=== PATIENT | male | born 1935 | race Caucasian/White ===

== ENCOUNTER 2021-10-22 16:42 | Observation (INO) ==
[2021-10-22] MEDS ORDERED: 0.9 % SODIUM CHLORIDE 1,000 ML IV ONE ×2 (18:20→19:25)
--- NOTE | 2021-10-22 18:25 | Emergency Department Note ---
HPI General Chief complaint: Blood Pressure Problem Stated complaint: "low blood pressure" Time Seen by Provider: 10/22/21 16:53 Source: patient Mode of arrival: ambulatory Limitations: no limitations History of Present Illness HPI Narrative: Narrative: Patient presents to the ED with complaints of remittent dizziness x1 week. He states that at times he feel like his got a pass out but he does not. He states sometimes when he is walking he has to brace himself on the wall. He states that his blood pressure has been low down around 110 systolically. [facility] come [facility] for [facility]. Patient states that he takes metoprolol, losartan for blood pressure control and he also takes Lasix for heart failure. Patient states he has been taking the medication as prescribed. He denies any falls, head trauma, vision change, slurred speech, extremity weakness, extremity numbness, facial droopiness, cardiac chest pain, heart palpitations, shortness of breath, cough, sputum production, melena, medic easier, hematemesis. Patient denies any other alleviating or aggravating factors. Related Data Home Medications Medication Instructions Recorded Confirmed aspirin 81 mg tablet,delayed 81 mg PO DAILY 01/14/15 10/22/21 release mometasone 50 mcg/actuation nasal 2 spray KENYATTA DAILY 11/04/15 10/22/21 spray nitroglycerin 0.4 mg sublingual 0.4 mg SL PRN PRN Chest Pain 11/04/15 10/09/19 tablet CPAP miscellaneous 11/26/15 08/23/19 acetaminophen 325 mg tablet 650 mg PO Q6H PRN Pain 11/26/15 10/22/21 ipratropium 20 mcg-albuterol 100 1 inh inhalation QID 11/27/15 10/22/21 mcg/actuation mist for inhalation (Combivent Respimat) atorvastatin 40 mg tablet 80 mg PO DAILY 01/07/16 10/22/21 finasteride 5 mg tablet 5 mg PO QHS 01/07/16 10/22/21 ioxurp-dczsbuxs-brsszvd 2 cap PO .QAC 03/02/17 10/22/21 24,000-76,000-120,000 unit capsule,delayed rel (Creon) multivitamin 1 tab PO QDAY 03/02/17 10/22/21 tadalafil 20 mg tablet (Cialis) 20 mg PO QDAY PRN erectile 02/28/19 10/09/19 disfunction albuterol 90 mcg/actuation aerosol 90 mcg inhalation QID 10/22/21 10/22/21 inhaler doxepin 50 mg capsule 100 mg PO QHS 10/22/21 10/22/21 ezetimibe 10 mg tablet 10 mg PO QDAY 10/22/21 10/22/21 furosemide 20 mg tablet 20 mg PO DAILY 10/22/21 10/22/21 ibuprofen 600 mg tablet 600 mg PO DAILY PRN Pain 10/22/21 10/22/21 losartan 25 mg tablet 50 mg PO QDAY 10/22/21 10/22/21 metoprolol succinate 50 mg 50 mg PO QDAY 10/22/21 10/22/21 tablet,extended release 24 hr tamsulosin 0.4 mg capsule (Flomax) 0.8 mg PO QHS 10/22/21 10/22/21 Previous Rx's Medication Instructions Recorded pantoprazole 40 mg tablet,delayed 40 mg PO QDAY #90 tabs 08/23/19 release Allergies Allergy/AdvReac Type Severity Reaction Status Date / Time doxycycline Allergy Mild Rash Verified 10/09/19 15:47 morphine Allergy Mild Rash Verified 10/09/19 15:47 Review of Systems ROS ROS Narrative: Narrative: All systems ED: reviewed and negative except as stated. [facility] Narrative Patient History Narrative: Narrative: Medical/Surgical/Family History All Active Problems (Updated 10/22/21 @ 21:35 by Vin Lee DO) Chest pain (Acute) Symptomatic bradycardia (Acute) Night sweats (Acute) Annual physical exam (Acute) Medicare annual wellness visit, initial (Acute) Chronic pancreatitis (Chronic) Prediabetes (Chronic) Left ankle pain (Acute) Thrombocytopenia (Acute) Leukopenia (Acute) Pancreatic necrosis (Chronic) GERD (gastroesophageal reflux disease) (Chronic) BPH (benign prostatic hyperplasia) (Chronic) Nausea and vomiting (Chronic) Peripancreatic fluid collection (Chronic) Arthritis of back (Chronic) Acute pancreatitis with uninfected necrosis (Chronic) Lower extremity edema (Chronic) CAD (coronary artery disease) (Chronic) Diarrhea (Chronic 11/08/15) Abdominal pain (Chronic) 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) Colon polyps (Chronic) Seizures (Chronic 10/14/15) Joint pain (Chronic) Hyperlipidemia (Chronic) Hypertension, essential (Chronic) Heart trouble (Chronic) Daytime sleepiness (Chronic) Muscle pain (Chronic) Asthma (Chronic) Bronchitis (Chronic) Sinusitis (Chronic) Pneumonia (Chronic) Laboratory test (Chronic) Medical History (Updated 10/22/21 @ 21:35 by Vin Lee DO) Abdominal pain Acute pancreatitis with uninfected necrosis Annual physical exam Arthritis of back Asthma BPH (benign prostatic hyperplasia) Bronchitis CAD (coronary artery disease) Colon polyps Daytime sleepiness Diarrhea (11/08/15) Drug-induced pancreatitis (10/14/15) GERD (gastroesophageal reflux disease) Heart trouble Hyperlipidemia Hypertension, essential Joint pain Laboratory test Lower extremity edema Medicare annual wellness visit, initial Muscle pain Nausea and vomiting Night sweats Pancreatic necrosis Peripancreatic fluid collection Pneumonia Prediabetes Seizures (10/14/15) Sinusitis Surgical History H/O colonoscopy H/O eye surgery (1998) tear duct H/O heart artery stent (~01/2014) 2012 5 stents done over 2 surgeries H/O heart surgery (2014) H/O sinus surgery (1996) History of back surgery (2011) Also 1996 History of endoscopy (02/16/16) GI History of esophagogastroduodenoscopy (EGD) (02/16/16) 12/09/15 Family History Mother Colon cancer Hypertension, essential Heart attack Sister Hypertension, essential Social History Alcohol Intake Frequency: does not drink Substance Use: does not use Exam Narrative Narrative: Narrative: General Limitations: no limitations General appearance: Present alert Head Head: Present atraumatic and normocephalic Eye Eye: Present PERRL and EOMI ENT ENT: Present normal exam and normal oropharynx Neck Neck: Present normal inspection; Absent tenderness or meningismus Chest Chest: Present normal inspection; Absent tenderness Respiratory Respiratory: Present normal lung sounds bilaterally; Absent respiratory distress Cardiovascular Cardiovascular: Present normal rhythm and bradycardia Adbominal Abdominal: Present soft; Absent tenderness Extremities Extremities: Present normal capillary refill Back Back: Absent CVA tenderness (R) or CVA tenderness (L) Neurological Neurological: Present oriented X3 and normal gait Psychiatric Psychiatric: Present normal affect and normal mood Skin Skin: Present warm (WNL) and pallor Course Course Course Narrative: Patient was evaluated for dizziness. EKG was obtained and shows sinus bradycardia. Patient with monitored on telemetry he did bradycardia down to about 38 at times but average around 45 bpm. Labs were unremarkable. Patient attempted to ambulate the halls but became tired and weak. CT of the head was unremarkable. Case was discussed with cardiology who recommends the patient be admitted to hospitalist service and his beta-fay be held. They request a hospitalist consult cardiology group and they will evaluate him in the morning after his beta-fay has been held. Case discussed with hospitalist who has agreed to admit the patient Reevaluation(s) Reevaluation #1: Patient remains hemodynamic stable. No new complaints at this time Time: 20:10 Consultations Consultation #1: Case discussed with cardiology advanced nurse practitioner Mallory, who recommend that patient be admitted to the hospitalist service and that his beta-fay be held. She reports that the cardiology group will evaluate the patient in the morning after being consulted. Time: 21:05 Consultation #2: Case discussed with hospitalist who has agreed to admit the patient Time: 22:01 Vital Signs Vital signs: Vital Signs Temperature 98.2 F 10/22/21 16:43 Pulse Rate 51 L 10/22/21 16:43 Respiratory Rate 18 10/22/21 16:43 Blood Pressure 150/75 10/22/21 16:43 Pulse Oximetry (%) 96 10/22/21 16:43 Oxygen Delivery Method 10/22/21 16:43 Temperature 98.2 F 10/22/21 16:43 Pulse Rate 48 L 10/22/21 21:42 Respiratory Rate 16 10/22/21 21:42 Blood Pressure 143/61 10/22/21 21:42 Pulse Oximetry (%) 98 10/22/21 21:42 Oxygen Delivery Method 10/22/21 16:43 [facility] MDM Narrative Medical decision making narrative: Narrative: Differential Diagnosis Differential Diagnosis: Bradycardia, vertigo, dehydration, anemia Medical Records Medical records reviewed: Yes I reviewed the patient's medical records. Lab Data Lab results reviewed: Yes I reviewed the patient's lab results. Result diagrams: 10/22/21 18:53 Labs: Lab Results 10/22/21 10/22/21 10/22/21 Range/Units 18:53 18:53 18:59 WBC 4.7 (4.5-11.0) K/mcL RBC 4.45 L (4.63-6.08) M/mcL Hgb 13.3 L (13.7-17.5) g/dL Hct 39.2 L (40.1-51.0) % POC Hct (41-55) MCV 88.1 (80.0-100.0) fL MCH 29.9 (26.0-34.0) pg MCHC 33.9 (31.0-36.0) g/dL RDW 13.0 (11.5-14.5) % Plt Count 154 (140-440) K/mcL MPV 10.9 H (7.4-10.4) fL Immature Gran % (Auto) 0.4 (0.0-0.5) % Neut % (Auto) 49.2 (38.0-78.0) % Lymph % (Auto) 33.0 (15.5-49.0) % [place] % (Auto) 8.2 (1.0-12.0) % Eos % (Auto) 8.6 H (0.0-7.0) % Baso % (Auto) 0.6 (0.0-2.0) % Lymph # (Auto) 1.54 (1.50-4.80) K/mcL [place] # (Auto) 0.38 (0.10-0.90) K/mcL Eos # (Auto) 0.40 (0.00-0.70) K/mcL Baso # (Auto) 0.03 (0.00-0.30) K/mcL Immature Gran # 0.02 (0.00-0.05) K/mcl Absolute Neutrophils 2.29 (1.80-8.00) K/mcL POC Sodium (133-145) POC Potassium (3.3-5.1) POC Chloride (96-108) POC Total CO2 (22-30) POC BUN (6-20) POC Creatinine (0.6-1.2) POC Glucose (70-105) POC WB Ioniz Calcium (1.16-1.32) NT-Pro-B Natriuret Pep 60.6 (<450.0) pg/mL POC Troponin I 0 L (0.02-0.08) 10/22/21 Range/Units 19:00 WBC (4.5-11.0) K/mcL RBC (4.63-6.08) M/mcL Hgb (13.7-17.5) g/dL Hct (40.1-51.0) % POC Hct 38.0 L (41-55) MCV (80.0-100.0) fL MCH (26.0-34.0) pg MCHC (31.0-36.0) g/dL RDW (11.5-14.5) % Plt Count (140-440) K/mcL MPV (7.4-10.4) fL Immature Gran % (Auto) (0.0-0.5) % Neut % (Auto) (38.0-78.0) % Lymph % (Auto) (15.5-49.0) % [place] % (Auto) (1.0-12.0) % Eos % (Auto) (0.0-7.0) % Baso % (Auto) (0.0-2.0) % Lymph # (Auto) (1.50-4.80) K/mcL [place] # (Auto) (0.10-0.90) K/mcL Eos # (Auto) (0.00-0.70) K/mcL Baso # (Auto) (0.00-0.30) K/mcL Immature Gran # (0.00-0.05) K/mcl Absolute Neutrophils (1.80-8.00) K/mcL POC Sodium 141 (133-145) POC Potassium 4.3 (3.3-5.1) POC Chloride 103 (96-108) POC Total CO2 30.0 (22-30) POC BUN 28 H (6-20) POC Creatinine 1.5 H (0.6-1.2) POC Glucose 102 (70-105) POC WB Ioniz Calcium 1.21 (1.16-1.32) NT-Pro-B Natriuret Pep (<450.0) pg/mL POC Troponin I (0.02-0.08) EKG Data EKG #1: EKG attestation: Yes I reviewed and interpreted this EKG. EKG shows normal: sinus rhythm Rate: bradycardia (47) Rhythm: NSR Coats/QRS: normal Heart block present: None ST segment elevation in: None ST segment depression in: None QTc: normal QRS morphology: Present normal Interpretation: no acute changes Core Measures AMI Core Measures Followed: Yes Discharge Plan Patient/Caregiver Discharge Instructions Pt seen by TIMBER SIZER OPERATOR/PA only: No Clinical Impression: Symptomatic bradycardia Patient Disposition: Xfer As Outpt/Obs ([facility]) Condition: Good Follow up with: Nasrin Roach ARNP [Primary Care Provider] - Prescriptions: No Action ipratropium-albuterol [Combivent Respimat] 20-100 mcg/actuation mist 1 inh INHALATION QID vwtpgp-csiqwpdf-ghnchke [Creon] 24,000-76,000 -120,000 unit capsule,delayed release(DR/EC) [address] Label Comments: and 2 cap with snacks CPAP MISCELLANE acetaminophen 325 mg tablet 650 mg PO Q6H PRN (Reason: Pain) finasteride 5 mg tablet 5 mg PO QHS multivitamin tablet 1 tab PO QDAY pantoprazole 40 mg tablet,delayed release (DR/EC) 40 mg PO QDAY Qty: 90 1RF tadalafil [Cialis] 20 mg tablet 20 mg PO QDAY PRN (Reason: erectile disfunction) aspirin 81 MG tablet,delayed release (DR/EC) 81 mg PO DAILY atorvastatin 40 MG tablet 80 mg PO DAILY nitroglycerin 0.4 MG tablet, sublingual 0.4 mg SL PRN PRN (Reason: Chest Pain) Label Comments: hasn't had to use for years mometasone 1 SPRAY bottle 2 spray KENYATTA DAILY doxepin 50 mg capsule 100 mg PO QHS losartan 25 mg tablet 50 mg PO QDAY tamsulosin [Flomax] 0.4 mg capsule 0.8 mg PO QHS furosemide 20 mg tablet 20 mg PO DAILY Label Comments: [NO ORIGINAL SIG] metoprolol succinate 50 mg Tablet Extended Release 24 Hr 50 mg PO QDAY ezetimibe 10 mg Tablet 10 mg PO QDAY albuterol 90 mcg/actuation Aerosol 90 mcg INHALATION QID Rx Instructions: 2 puffs QID ibuprofen 600 mg Tablet 600 mg PO DAILY PRN (Reason: Pain)
--- NOTE | 2021-10-22 18:40 | Cat Scan Report ---
CLINICAL INFORMATION: Dizziness COMPARISON: None. TECHNIQUE: 2.5 mm helical slices were obtained in the skull base to vertex. Following reconstruction, axial reformatted images were reviewed at bone and parenchymal windows. The exam was performed using radiation dose optimization techniques including, but not limited to, automated exposure control, adjustment of the mA and/or kV according to patient size and use of iterative reconstruction technique. FINDINGS: The ventricles, sulci, fissures, and cisterns are symmetrically enlarged compatible with mild age-related atrophy. No extra-axial fluid collections are identified. Mild patchy chronic ischemic changes, in the deep cerebral white matter, are expected for age. There is no hemorrhage, mass effect, or edema. Bone windows show no osseous abnormality. IMPRESSION: Mild atrophy and chronic ischemic changes in the deep cerebral white matter-expected for age. No acute findings Interpreted and Authenticated by: Baljit Moore 10/22/21
[2021-10-22 19:05] LABS: POC Calcium, Ionized 1.21 (1.16-1.32); POC Creatinine 1.5 (0.6-1.2); POC Potassium 4.3 (3.3-5.1)
[2021-10-22] MEDS ORDERED: ACETAMINOPHEN 325 MG TABLET PO ONE (19:14)
[2021-10-22 20:11] LABS: Basophils # (Auto) 0.03 K/mcL (0.00-0.30); Basophils % (Auto) 0.6 % (0.0-2.0); Eosinophils % (Auto) 8.6 % (0.0-7.0); Hematocrit 39.2 % (40.1-51.0); Hemoglobin 13.3 g/dL (13.7-17.5); Lymphocytes # (Auto) 1.54 K/mcL (1.50-4.80); Mean Cell Volume 88.1 fL (80.0-100.0); Mean Corpuscular HGB Conc 33.9 g/dL (31.0-36.0); Mean Platelet Volume 10.9 fL (7.4-10.4); Monocytes # (Auto) 0.38 K/mcL (0.10-0.90); Monocytes % (Auto) 8.2 % (1.0-12.0); Neutrophils % (Auto) 49.2 % (38.0-78.0); Platelet Count 154 K/mcL (140-440); RBC 4.45 M/mcL (4.63-6.08); WBC 4.7 K/mcL (4.5-11.0)
[2021-10-22] MEDS ORDERED: MECLIZINE 25 MG TABLET PO ONE (20:15)
[2021-10-22 21:00] LABS: proBNP 60.6 pg/mL (<450.0)
--- NOTE | 2021-10-22 22:23 | Internal Med History&Physical ---
HPI History of Present Illness Patient information: Note initiated : 10/22/21 at 10:21 pm Service Date, if different from initiated Date: [] Patient: Evaristo Vega 86 y/o M admitted on for "low blood pressure". Chief Complaint: [] History of present illness: Mr. Vega is a 86 year old male with a history of hypertension, hyperlipidemia, coronary artery disease status post multiple prior stents, chronic pancreatitis, prediabetes who presented to the emergency department for intermittent dizziness and near syncope. In the emergency department, the patient was found to have sinus bradycardia with first-degree AV block. Troponin was normal. Electrolytes were normal. He has been on Toprol and that is felt to be at least part of the issue with bradycardia. The patient says that his symptoms do not occur all the time but intermittently and without warning. The patient is admitted to observation for cardiology evaluation. Review of systems Constitutional: no fever, fatigue, or weight loss Eyes: no vision changes or pain Cardiovascular: no chest pain, no palpitations, positive for intermittent near syncope Respiratory: no cough or dyspnea Gastrointestinal: no abdominal pain, no nausea, vomiting, or diarrhea Genitourinary: no dysuria or difficulty voiding Musculoskeletal: no arthralgia or myalgia Integumentary: no skin lesion or wound Neurological: no focal weakness or numbness Psychiatric: no anxiety or depression Physical exam Head: Atraumatic, normal inspection. Eyes: normal appearance, no scleral icterus. Neck: full ROM Respiratory: no respiratory distress. Cardiovascular: Regular bradycardia, S1-S2 GI/Abdominal: soft, nontender, no guarding. Extremities: full range of motion, nontender. Neurological: CN II-XII intact, intact motor, intact sensation. Psychiatric: normal mood. Skin: warm, normal color PFSH PFS All Active Problems (Updated 10/22/21 @ 21:35 by Vin Lee DO) Chest pain (Acute) Symptomatic bradycardia (Acute) Night sweats (Acute) Annual physical exam (Acute) Medicare annual wellness visit, initial (Acute) Chronic pancreatitis (Chronic) Prediabetes (Chronic) Left ankle pain (Acute) Thrombocytopenia (Acute) Leukopenia (Acute) Pancreatic necrosis (Chronic) GERD (gastroesophageal reflux disease) (Chronic) BPH (benign prostatic hyperplasia) (Chronic) Nausea and vomiting (Chronic) Peripancreatic fluid collection (Chronic) Arthritis of back (Chronic) Acute pancreatitis with uninfected necrosis (Chronic) Lower extremity edema (Chronic) CAD (coronary artery disease) (Chronic) Diarrhea (Chronic 11/08/15) Abdominal pain (Chronic) 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) Colon polyps (Chronic) Seizures (Chronic 10/14/15) Joint pain (Chronic) Hyperlipidemia (Chronic) Hypertension, essential (Chronic) Heart trouble (Chronic) Daytime sleepiness (Chronic) Muscle pain (Chronic) Asthma (Chronic) Bronchitis (Chronic) Sinusitis (Chronic) Pneumonia (Chronic) Laboratory test (Chronic) Medical History (Updated 10/22/21 @ 21:35 by Vin Lee DO) Abdominal pain Acute pancreatitis with uninfected necrosis Annual physical exam Arthritis of back Asthma BPH (benign prostatic hyperplasia) Bronchitis CAD (coronary artery disease) Colon polyps Daytime sleepiness Diarrhea (11/08/15) Drug-induced pancreatitis (10/14/15) GERD (gastroesophageal reflux disease) Heart trouble Hyperlipidemia Hypertension, essential Joint pain Laboratory test Lower extremity edema Medicare annual wellness visit, initial Muscle pain Nausea and vomiting Night sweats Pancreatic necrosis Peripancreatic fluid collection Pneumonia Prediabetes Seizures (10/14/15) Sinusitis Surgical History H/O colonoscopy H/O eye surgery (1998) tear duct H/O heart artery stent (~01/2014) 2011 5 stents done over 2 surgeries H/O heart surgery (2014) H/O sinus surgery (1996) History of back surgery (2011) Also 1996 History of endoscopy (02/16/16) GI History of esophagogastroduodenoscopy (EGD) (02/16/16) 12/09/15 Family History Mother Colon cancer Hypertension, essential Heart attack Sister Hypertension, essential Social History (Updated 06/14/19 @ 07:38 by Ace Elias PA-C) marital status: smoking status: Never smoker alcohol intake frequency: does not drink substance use type: does not use MEDS/ALLERGIES Home Medications and Allergies Home Medications Medication Instructions Recorded Confirmed Type aspirin 81 mg tablet,delayed 81 mg PO DAILY 01/14/15 10/23/21 History release mometasone 50 mcg/actuation nasal 2 spray KENYATTA DAILY 11/04/15 10/23/21 History spray CPAP miscellaneous 11/26/15 08/23/19 History acetaminophen 325 mg tablet 650 mg PO Q6H PRN Pain 11/26/15 10/23/21 History ipratropium 20 mcg-albuterol 100 1 inh inhalation QID 11/27/15 10/23/21 History mcg/actuation mist for inhalation (Combivent Respimat) atorvastatin 40 mg tablet 80 mg PO DAILY 01/07/16 10/23/21 History finasteride 5 mg tablet 5 mg PO QHS 01/07/16 10/23/21 History abhcbe-hqgnifep-hbxwvec 3 cap PO .QAC 03/02/17 10/23/21 History 24,000-76,000-120,000 unit capsule,delayed rel (Creon) multivitamin 1 tab PO QDAY 03/02/17 10/23/21 History tadalafil 20 mg tablet (Cialis) 20 mg PO QDAY PRN erectile 02/28/19 10/09/19 History disfunction albuterol 90 mcg/actuation aerosol 90 mcg inhalation QID 10/22/21 10/23/21 History inhaler doxepin 50 mg capsule 100 mg PO QHS 10/22/21 10/23/21 History ezetimibe 10 mg tablet 10 mg PO QDAY 10/22/21 10/23/21 History furosemide 20 mg tablet 20 mg PO DAILY 10/22/21 10/23/21 History ibuprofen 600 mg tablet 600 mg PO DAILY PRN Pain 10/22/21 10/23/21 History losartan 25 mg tablet 50 mg PO QDAY 10/22/21 10/23/21 History metoprolol succinate 50 mg 50 mg PO QDAY 10/22/21 10/23/21 History tablet,extended release 24 hr tamsulosin 0.4 mg capsule (Flomax) 0.8 mg PO QAM 10/22/21 10/23/21 History melatonin 1 tab PO QHS PRN Sleep 10/23/21 10/23/21 History Allergies Allergy/AdvReac Type Severity Reaction Status Date / Time doxycycline Allergy Mild Rash Verified 10/23/21 01:34 hydrochlorothiazide Allergy Mild Rash Verified 10/23/21 01:34 morphine Allergy Mild Rash Verified 10/23/21 01:34 EXAM Constitutional Vitals: Temp Pulse Resp BP Pulse Ox O2 Del Method 98.2 F 48 L 16 143/61 98 10/22/21 16:43 10/22/21 21:42 10/22/21 21:42 10/22/21 21:42 10/22/21 21:42 10/22/21 16:43 DATA Data Completed and Pending Labs: Labs from last 24 hours 10/22/21 10/22/21 10/22/21 19:00 18:59 18:53 WBC RBC Hgb Hct POC Hct 38.0 L MCV MCH MCHC RDW Plt Count MPV Immature Gran % (Auto) Neut % (Auto) Lymph % (Auto) [place] % (Auto) Eos % (Auto) Baso % (Auto) Lymph # (Auto) [place] # (Auto) Eos # (Auto) Baso # (Auto) Immature Gran # Absolute Neutrophils POC Sodium 141 POC Potassium 4.3 POC Chloride 103 POC Total CO2 30.0 POC BUN 28 H POC Creatinine 1.5 H POC Glucose 102 POC WB Ioniz Calcium 1.21 NT-Pro-B Natriuret Pep 60.6 POC Troponin I 0 L 10/22/21 18:53 WBC 4.7 RBC 4.45 L Hgb 13.3 L Hct 39.2 L POC Hct MCV 88.1 MCH 29.9 MCHC 33.9 RDW 13.0 Plt Count 154 MPV 10.9 H Immature Gran % (Auto) 0.4 Neut % (Auto) 49.2 Lymph % (Auto) 33.0 [place] % (Auto) 8.2 Eos % (Auto) 8.6 H Baso % (Auto) 0.6 Lymph # (Auto) 1.54 [place] # (Auto) 0.38 Eos # (Auto) 0.40 Baso # (Auto) 0.03 Immature Gran # 0.02 Absolute Neutrophils 2.29 POC Sodium POC Potassium POC Chloride POC Total CO2 POC BUN POC Creatinine POC Glucose POC WB Ioniz Calcium NT-Pro-B Natriuret Pep POC Troponin I A/P Narrative A/P Narrative: Assessment: 86 year old male admitted for symptomatic bradycardia occurring in the setting of beta-fay use. EKG showed sinus bradycardia with prolonged DC interval. Plan -Hold beta-fay. -vehicle monitor technician. -Cardiology consult. -Continue other home medications. -Cardiac diet. Time Spent With Patient Time: Total time spent is greater than 50% in coordination of care (as documented) at patient's floor/unit and/or counseling patient:
[2021-10-22] MEDS ORDERED: ONDANSETRON 4 MG/2 ML VIAL IV PRN (23:47)
[2021-10-22] MEDS ORDERED: ACETAMINOPHEN 325 MG TABLET PO PRN (23:47)
[2021-10-23 06:32] LABS: Basophils # (Auto) 0.03 K/mcL (0.00-0.30); Basophils % (Auto) 0.7 % (0.0-2.0); Eosinophils # (Auto) 0.37 K/mcL (0.00-0.70); Eosinophils % (Auto) 8.6 % (0.0-7.0); Hematocrit 36.8 % (40.1-51.0); Hemoglobin 12.2 g/dL (13.7-17.5); Lymphocytes # (Auto) 1.39 K/mcL (1.50-4.80); Lymphocytes % (Auto) 32.3 % (15.5-49.0); Mean Cell Volume 89.3 fL (80.0-100.0); Mean Corpuscular HGB Conc 33.2 g/dL (31.0-36.0); Mean Platelet Volume 10.6 fL (7.4-10.4); Monocytes # (Auto) 0.39 K/mcL (0.10-0.90); Monocytes % (Auto) 9.1 % (1.0-12.0); Neutrophils % (Auto) 49.1 % (38.0-78.0); Platelet Count 137 K/mcL (140-440); RBC 4.12 M/mcL (4.63-6.08); Red Cell Distribution Width 12.7 % (11.5-14.5); WBC 4.3 K/mcL (4.5-11.0)
[2021-10-23] MEDS: 0.9 % SODIUM CHLORIDE 10 ML SYRINGE IV SCH ×2 (06:36→14:34)
[2021-10-23 06:43] LABS: ALT/SGPT 15 U/L (<40); AST/SGOT 25 U/L (<40); Albumin 3.7 gm/dL (3.2-5.2); Albumin/Globulin Ratio 1.5 (1.0-2.3); Alkaline Phosphatase 45 U/L (39-117); Bilirubin,Direct < 0.2 mg/dL (0-0.3); Bilirubin,Total 0.2 mg/dL (0.1-1.0); Blood Urea Nitrogen 19 mg/dL (8-23); Calcium 8.5 mg/dL (8.6-10.4); Carbon Dioxide 25 mmol/L (22-30); Chloride 108 mmol/L (96-108); Globulin 2.4 gm/dL (2.2-3.7); Glomerular Filtration Rate 55; Glucose 119 mg/dL (70-105); Lactate Dehydrogenase 209 U/L (135-225); Triglycerides 112 mg/dL (<150); Uric Acid 7.3 mg/dL (2.5-8.0)
[2021-10-23] MEDS: LIPASE/PROTEASE/AMYLASE 1 CAP CAPSULE PO SCH ×2 (07:40→12:44)
[2021-10-23] MEDS ORDERED: ATORVASTATIN 40 MG TABLET PO SCH (09:00)
[2021-10-23] MEDS ORDERED: LOSARTAN 25 MG TABLET PO SCH (09:00)
[2021-10-23] MEDS ORDERED: ASPIRIN 81 MG TAB.CHEW PO SCH (09:00)
--- NOTE | 2021-10-23 10:09 | EKG ---
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
[2021-10-23] MEDS: IPRATROPIUM/ALBUTEROL SULFATE 1 PUFF INHALER INH SCH ×2 (12:44→13:20)
--- NOTE | 2021-10-23 16:29 | Discharge Summary ---
Discharge Provider Provider IMPORTANT FOLLOW-UP INFORMATION FOR PCP: Patient information: Note initiated : 10/23/21 at 4:26 pm Service Date, if different from initiated Date: [] Patient: Evaristo Vega 86 y/o M admitted on 10/22/21 for "low blood pressure". Chief Complaint: [] Date of admission: 10/22/21 23:19 Discharge date: 10/23/21 Primary care physician: Nasrin Roach Consults: 10/22/21 Consult to Physician [CONS] Stat Comment: Consulting Provider: Reggie Lopez Reason For Exam: Physician to Consult Consult to Physician [CONS] Stat Comment: Consulting Provider: Glenny Moraes Cardiology Reason For Exam: Physician to Consult COURSE Hospital Course Hospital course: Mr. Vega is a 86 year old male with a history of hypertension, hyperlipidemia, coronary artery disease status post multiple prior stents, chronic pancreatitis, prediabetes who presented to the emergency department for intermittent dizziness and near syncope. In the emergency department, the patient was found to have sinus bradycardia with first-degree AV block. Troponin was normal. Electrolytes were normal. He has been on Toprol and that is felt to be at least part of the issue with bradycardia. The patient says that his symptoms do not occur all the time but intermittently and without warning. The patient is admitted to observation for cardiology evaluation. The patient's beta fay was held. Cardiology evaluated the patient, his heart rate increased into the 70s with ambulation. There were no concerning changes on the quality assurance monitor. Cardiology felt the patient could discharge to home and recommended holding the beta fay and changing Flomax to night time dose. The patient was discharged with the recommended changes. He has an appointment to see Cardiology after discharge and a PCP followup was also requested at discharge. Physical exam Head: Atraumatic, normal inspection. Eyes: normal appearance, no scleral icterus. Neck: full ROM Respiratory: no respiratory distress. Cardiovascular: Regular bradycardia, S1-S2 GI/Abdominal: soft, nontender, no guarding. Extremities: full range of motion, nontender. Neurological: CN II-XII intact, intact motor, intact sensation. Psychiatric: normal mood. Skin: warm, normal color Discharge diagnosis: Bradycardia Time Spent with Patient Time attestation: Total time spent providing and/or coordinating discharge services: Time spent: Less than 30 minutes EXAM Constitutional Vitals: Temp Pulse Resp BP Pulse Ox O2 Del Method 98.0 F 52 L 14 151/86 94 10/23/21 11:55 10/23/21 11:55 10/23/21 11:55 10/23/21 11:55 10/23/21 11:55 10/23/21 11:55 Discharge Data Data Completed and Pending Labs on day of discharge: Labs from last 24 hours 10/23/21 10/23/21 10/22/21 05:42 05:42 19:00 WBC 4.3 L RBC 4.12 L Hgb 12.2 L Hct 36.8 L POC Hct 38.0 L MCV 89.3 MCH 29.6 MCHC 33.2 RDW 12.7 Plt Count 137 L MPV 10.6 H Immature Gran % (Auto) 0.2 Neut % (Auto) 49.1 Lymph % (Auto) 32.3 Jack % (Auto) 9.1 Eos % (Auto) 8.6 H Baso % (Auto) 0.7 Lymph # (Auto) 1.39 L Jack # (Auto) 0.39 Eos # (Auto) 0.37 Baso # (Auto) 0.03 Immature Gran # 0.01 Absolute Neutrophils 2.11 POC Sodium 141 Sodium 141 POC Potassium 4.3 Potassium 4.3 POC Chloride 103 Chloride 108 Carbon Dioxide 25 POC Total CO2 30.0 Anion Gap 8.0 POC BUN 28 H BUN 19 Creatinine 1.2 POC Creatinine 1.5 H GFR Calculation 55 Glucose 119 H POC Glucose 102 Uric Acid 7.3 Calcium 8.5 L POC WB Ioniz Calcium 1.21 Phosphorus 3.0 Magnesium 2.3 Total Bilirubin 0.2 Direct Bilirubin < 0.2 GGT 39 AST 25 ALT 15 Alkaline Phosphatase 45 Lactate Dehydrogenase 209 NT-Pro-B Natriuret Pep Total Protein 6.1 Albumin 3.7 Globulin 2.4 Albumin/Globulin Ratio 1.5 Triglycerides 112 POC Troponin I 10/22/21 10/22/21 10/22/21 18:59 18:53 18:53 WBC 4.7 RBC 4.45 L Hgb 13.3 L Hct 39.2 L POC Hct MCV 88.1 MCH 29.9 MCHC 33.9 RDW 13.0 Plt Count 154 MPV 10.9 H Immature Gran % (Auto) 0.4 Neut % (Auto) 49.2 Lymph % (Auto) 33.0 Jack % (Auto) 8.2 Eos % (Auto) 8.6 H Baso % (Auto) 0.6 Lymph # (Auto) 1.54 Jack # (Auto) 0.38 Eos # (Auto) 0.40 Baso # (Auto) 0.03 Immature Gran # 0.02 Absolute Neutrophils 2.29 POC Sodium Sodium POC Potassium Potassium POC Chloride Chloride Carbon Dioxide POC Total CO2 Anion Gap POC BUN BUN Creatinine POC Creatinine GFR Calculation Glucose POC Glucose Uric Acid Calcium POC WB Ioniz Calcium Phosphorus Magnesium Total Bilirubin Direct Bilirubin GGT AST ALT Alkaline Phosphatase Lactate Dehydrogenase NT-Pro-B Natriuret Pep 60.6 Total Protein Albumin Globulin Albumin/Globulin Ratio Triglycerides POC Troponin I 0 L Discharge Plan Patient/Caregiver Discharge Instructions Activity: increase activity as tolerated Diet: Cardiac Prescriptions: New tamsulosin 0.4 mg Capsule 0.8 mg PO QHS Qty: 30 2RF Continued ipratropium-albuterol [Combivent Respimat] 20-100 mcg/actuation mist 1 inh INHALATION QID [id number] [Creon] 24,000-76,000 -120,000 unit capsule,delayed release(DR/EC) 3 cap PO .QAC Label Comments: and 2 cap with snacks CPAP MISCELLANE acetaminophen 325 mg tablet 650 mg PO Q6H PRN (Reason: Pain) finasteride 5 mg tablet 5 mg PO QHS multivitamin tablet 1 tab PO QDAY tadalafil [Cialis] 20 mg tablet 20 mg PO QDAY PRN (Reason: erectile disfunction) aspirin 81 MG tablet,delayed release (DR/EC) 81 mg PO DAILY atorvastatin 40 MG tablet 80 mg PO DAILY mometasone 1 SPRAY bottle 2 spray KENYATTA DAILY doxepin 50 mg capsule 100 mg PO QHS losartan 25 mg tablet 50 mg PO QDAY furosemide 20 mg tablet 20 mg PO DAILY Label Comments: [NO ORIGINAL SIG] ezetimibe 10 mg Tablet 10 mg PO QDAY albuterol 90 mcg/actuation Aerosol 90 mcg INHALATION QID Rx Instructions: 2 puffs QID ibuprofen 600 mg Tablet 600 mg PO DAILY PRN (Reason: Pain) melatonin 1 tab PO QHS PRN (Reason: Sleep) Discontinued tamsulosin [Flomax] 0.4 mg capsule 0.8 mg PO QAM metoprolol succinate 50 mg Tablet Extended Release 24 Hr 50 mg PO QDAY Follow Up Plan Follow up with: Nasrin Roach ARNP [Primary Care Provider] - Patient Disposition: Home, Self-Care Prognosis: Good Overall status at discharge: patient is progressing back to baseline Discharge Orders: Discharge Order (Routine); Ordered 10/23/21 Ordered By: Reggie GHOSH VTE Deep Vein Thrombosis/Pulmonary Embolism Present on Admission: No
--- NOTE | 2021-10-23 16:42 | Cardiology Consult Note ---
HPI History of Present Illness Patient information: Note initiated : 10/23/21 at 4:31 pm Service Date, if different from initiated Date: [] Patient: Evaristo Vega a 86 y/o M admitted on 10/22/21 for "low blood pressure". Chief Complaint: [] Chief complaint: Dizziness History of present illness: Mr. Vega is a 86 year old M with a history of coronary artery disease. He was last seen in our clinic on 11/06/2020. A 2-week event monitor was placed for the patient's complaints of palpitations and this did not show any atrial fibrillation which was what I was looking for. He did have an average heart rate of 60 bpm and no bradycardia or pathological arrhythmias. Prior to this he had seen Dr. Harden with some complaints of atypical chest pain. He had an angiogram in 2013 followed by 1 in 2014 with stents to the RCA and diagonal placed at that time. His chest pain appears atypical and he was started on metoprolol and was told that if his chest pain recur that we would consider a stress test. He has had a twelve-lead EKG showing borderline a first-degree AV block in the past. In the last several weeks he has noted significant dizzy spells. Has not been able to stand without bracing himself with a shopping cart or even holding onto his at times. He describes the dizzy spells as lightheadedness and general weakness. He presented to the emergency room yesterday and his heart rate was in the low 40s. They called me and I advised they discontinue the metoprolol at this time. Heart rate improved to the 60s. Blood pressures have remained stable. He was not orthostatic today when I evaluated him at the hospital. Blood pressures remain about 130/80. I walked him in the halls and his heart rate increased to 70. He was a little wobbly and had some balance complaints and had no complaints of any more lightheadedness. In the past he has been on Cialis and is not currently not taking that. He also has had recent increase in his Flomax to 2 tablets and has been taking this in the morning time. Twelve-lead EKG shows sinus bradycardia with first-degree AV block with old inferior TX and loss of R wave in the anterior leads suggestive of old anterior TX without any acute changes. He has had no symptoms of chest pain. Review of Systems All systems: reviewed and no additional remarkable complaints except as stated Constitutional Constitutional: Present headache(s) and weakness EENT Eyes: Present as per HPI Ears: Present as per HPI Nose, mouth and throat: Present disequilibrium and dizziness Additional comments: No actual vertigo Cardiovascular Cardiovascular: Present slow heart rate Additional comments: No chest pain, no complaints of palpitations irregular heartbeats Respiratory Respiratory: Present as per HPI Additional comments: No shortness of breath or cough no wheezes Gastrointestinal Gastrointestinal: Absent abdominal pain, bloating, diarrhea or nausea Musculoskeletal Musculoskeletal: Present abnormal gait and muscle weakness; Absent back pain Neurological Neurological: Present disequilibrium, dizziness and headache(s); Absent confusion, loss of vision, paresthesias or sensory deficit Endocrine Endocrine: Present fatigue; Absent palpitations Hematologic/Lymphatic Hematologic/Lymphatic: Absent lymphadenopathy PFSH PFSH All Active Problems (Updated 10/23/21 @ 16:48 by LUIS Milner) Dizzy spells (Acute) Chest pain (Acute) Symptomatic bradycardia (Acute) Night sweats (Acute) Annual physical exam (Acute) Medicare annual wellness visit, initial (Acute) Chronic pancreatitis (Chronic) Prediabetes (Chronic) Left ankle pain (Acute) Thrombocytopenia (Acute) Leukopenia (Acute) Pancreatic necrosis (Chronic) GERD (gastroesophageal reflux disease) (Chronic) BPH (benign prostatic hyperplasia) (Chronic) Nausea and vomiting (Chronic) Peripancreatic fluid collection (Chronic) Arthritis of back (Chronic) Acute pancreatitis with uninfected necrosis (Chronic) Lower extremity edema (Chronic) CAD (coronary artery disease) (Chronic) Diarrhea (Chronic 11/08/15) Abdominal pain (Chronic) 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) Colon polyps (Chronic) Seizures (Chronic 10/14/15) Joint pain (Chronic) Hyperlipidemia (Chronic) Hypertension, essential (Chronic) Heart trouble (Chronic) Daytime sleepiness (Chronic) Muscle pain (Chronic) Asthma (Chronic) Bronchitis (Chronic) Sinusitis (Chronic) Pneumonia (Chronic) Laboratory test (Chronic) Medical History (Updated 10/23/21 @ 16:48 by LUIS Milner) Abdominal pain Acute pancreatitis with uninfected necrosis Annual physical exam Arthritis of back Asthma BPH (benign prostatic hyperplasia) Bronchitis CAD (coronary artery disease) Colon polyps Daytime sleepiness Diarrhea (11/08/15) Drug-induced pancreatitis (10/14/15) GERD (gastroesophageal reflux disease) Heart trouble Hyperlipidemia Hypertension, essential Joint pain Laboratory test Lower extremity edema Medicare annual wellness visit, initial Muscle pain Nausea and vomiting Night sweats Pancreatic necrosis Peripancreatic fluid collection Pneumonia Prediabetes Seizures (10/14/15) Sinusitis Surgical History H/O colonoscopy H/O eye surgery (1998) tear duct H/O heart artery stent () 2012 5 stents done over 2 surgeries H/O heart surgery (2014) H/O sinus surgery (1996) History of back surgery (2011) Also 1996 History of endoscopy (02/16/16) GI History of esophagogastroduodenoscopy (EGD) (02/16/16) 12/09/15 Family History Mother Colon cancer Hypertension, essential Heart attack Sister Hypertension, essential Social History marital status: smoking status: Never smoker alcohol intake frequency: does not drink substance use type: does not use MEDS/ALLERGIES Home Medications and Allergies Home Medications Medication Instructions Recorded Confirmed Type aspirin 81 mg tablet,delayed 81 mg PO DAILY 01/14/15 10/23/21 History release mometasone 50 mcg/actuation nasal 2 spray KENYATTA DAILY 11/04/15 10/23/21 History spray CPAP miscellaneous 11/26/15 08/23/19 History acetaminophen 325 mg tablet 650 mg PO Q6H PRN Pain 11/26/15 10/23/21 History ipratropium 20 mcg-albuterol 100 1 inh inhalation QID 11/27/15 10/23/21 History mcg/actuation mist for inhalation (Combivent Respimat) atorvastatin 40 mg tablet 80 mg PO DAILY 01/07/16 10/23/21 History finasteride 5 mg tablet 5 mg PO QHS 01/07/16 10/23/21 History [id number] 3 cap PO .QAC 03/02/17 10/23/21 History 24,000-76,000-120,000 unit capsule,delayed rel (Creon) multivitamin 1 tab PO QDAY 03/02/17 10/23/21 History tadalafil 20 mg tablet (Cialis) 20 mg PO QDAY PRN erectile 02/28/19 10/09/19 History disfunction albuterol 90 mcg/actuation aerosol 90 mcg inhalation QID 10/22/21 10/23/21 History inhaler doxepin 50 mg capsule 100 mg PO QHS 10/22/21 10/23/21 History ezetimibe 10 mg tablet 10 mg PO QDAY 10/22/21 10/23/21 History furosemide 20 mg tablet 20 mg PO DAILY 10/22/21 10/23/21 History ibuprofen 600 mg tablet 600 mg PO DAILY PRN Pain 10/22/21 10/23/21 History losartan 25 mg tablet 50 mg PO QDAY 10/22/21 10/23/21 History melatonin 1 tab PO QHS PRN Sleep 10/23/21 10/23/21 History tamsulosin 0.4 mg capsule 0.8 mg PO QHS #30 caps 10/23/21 Rx Allergies Allergy/AdvReac Type Severity Reaction Status Date / Time doxycycline Allergy Mild Rash Verified 10/23/21 01:34 hydrochlorothiazide Allergy Mild Rash Verified 10/23/21 01:34 morphine Allergy Mild Rash Verified 10/23/21 01:34 Physical Examination Vital Signs Vital Signs: Temp Pulse Resp BP Pulse Ox O2 Del Method 97.5 F 61 12 144/84 95 10/23/21 16:00 10/23/21 16:00 10/23/21 16:00 10/23/21 16:00 10/23/21 16:00 10/23/21 16:00 Physical Examination General: Present Appears Well HEENT: Present Pallor Neck: Present Supple Neck, Midline Trachea and No JVD/HJR; Absent JVD/HJR or No Bruit Cardiac: Present Reg Rate and Rhythm, Regular Rate, S1/S2 and No Murmur Lungs: Present Normal Exam Neuro: Present Cranial Nerve 2-12 Intact Abdomen: Present Soft Skin: Present Clear Gait: Present Poor Gait Extremities: Absent No Clubbing, No Cyanosis or No Edema Results Labs and Meds Result diagrams: 10/23/21 05:42 10/23/21 05:42 Lab results: Cardiac Enzymes 10/23/21 Range/Units 05:42 AST 25 (<40) U/L Lactate Dehydrogenase 209 (135-225) U/L Lipids 10/23/21 Range/Units 05:42 Triglycerides 112 (<150) mg/dL CBC 10/22/21 10/23/21 Range/Units 18:53 05:42 WBC 4.7 4.3 L (4.5-11.0) K/mcL RBC 4.45 L 4.12 L (4.63-6.08) M/mcL Hgb 13.3 L 12.2 L (13.7-17.5) g/dL Hct 39.2 L 36.8 L (40.1-51.0) % Plt Count 154 137 L (140-440) K/mcL Lymph # (Auto) 1.54 1.39 L (1.50-4.80) K/mcL [place] # (Auto) 0.38 0.39 (0.10-0.90) K/mcL Eos # (Auto) 0.40 0.37 (0.00-0.70) K/mcL Baso # (Auto) 0.03 0.03 (0.00-0.30) K/mcL Comprehensive Metabolic Panel 10/23/21 Range/Units 05:42 Sodium 141 (133-145) mmol/L Potassium 4.3 (3.3-5.1) mmol/L Chloride 108 (96-108) mmol/L Carbon Dioxide 25 (22-30) mmol/L BUN 19 (8-23) mg/dL Creatinine 1.2 (0.7-1.2) mg/dL Glucose 119 H (70-105) mg/dL Calcium 8.5 L (8.6-10.4) mg/dL Direct Bilirubin < 0.2 (0-0.3) mg/dL AST 25 (<40) U/L ALT 15 (<40) U/L Alkaline Phosphatase 45 (39-117) U/L Total Protein 6.1 (5.9-8.4) gm/dL Albumin 3.7 (3.2-5.2) gm/dL Current Medications Generic Name Dose Route Start Last Admin Trade Name Freq PRN Reason Stop Dose Admin Acetaminophen 650 mg 10/22/21 23:47 Acetaminophen 325 Mg Tablet PO Q6HP PRN Per Pain Protocol/Fever > 101 Protocol Albuterol/Ipratropium 1 puff 10/23/21 09:00 10/23/21 13:20 Ipratropium/Albuterol Sulfate 1 Puff Inhaler INH Not Given QID PAULO Lipase/Protease/Amylase 2 cap 10/23/21 07:30 10/23/21 12:44 Lipase/Protease/Amylase 1 Cap Capsule PO 2 cap AC PAULO Administration Aspirin 81 mg 10/23/21 09:00 10/23/21 09:17 Aspirin 81 Mg Tab.Chew PO 81 mg DAILY PAULO Administration Atorvastatin Calcium 80 mg 10/23/21 09:00 10/23/21 08:41 Atorvastatin 40 Mg Tablet PO 80 mg DAILY PAULO Administration Doxepin HCl 100 mg 10/23/21 21:00 Doxepin 25 Mg Capsule PO QHS PAULO Finasteride 5 mg 10/23/21 21:00 Finasteride 5 Mg Tablet PO QHS [facility] Losartan Potassium 50 mg 10/23/21 09:00 10/23/21 08:40 Losartan 25 Mg Tablet PO 50 mg QDAY PAULO Administration Ondansetron HCl 4 mg 10/22/21 23:47 Ondansetron 4 Mg/2 Ml Vial IV Q6HP PRN Nausea And Vomiting Senna 2 tab 10/23/21 21:00 Sennosides 1 Tablet PO HS [facility] Sodium Chloride 10 ml 10/23/21 06:00 10/23/21 14:34 0.9 % Sodium Chloride 10 Ml Syringe IV 10 ml Q8 PAULO Administration Tamsulosin HCl 0.8 mg 10/23/21 21:00 Tamsulosin 0.4 Mg Capsule PO QHS [facility] Intake and Output 10/23/21 10/23/21 10/23/21 05:59 13:59 21:59 Intake Total 400 1080 Output Total 250 1400 850 Balance 150 -320 -850 Intake: Oral 400 1080 Output: Void Amount 250 1400 850 Other: Meal Lunch Percent of Meal Consumed 100% Feeding Ability Independent Urine Appearance Clear Clear Clear Urine Color Yellow Pale Yellow Weight 108.771 kg Imaging and Cardiology Imaging Narrative: Narrative: EKG Interpretation EKG: reviewed by ER-MD EKG interpretations EKG Interpretation: First-degree AV block sinus bradycardia old inferior possible old anterior TX no acute ST changes. EKG results cardiology: reviewed by ER-MD Dysrhythmias Sinus rhythms and dysrhythmias: sinus bradycardia (< 50 bpm) A/P Assessment and plan (1) Symptomatic bradycardia: Status: Acute (2) Dizzy spells: Status: Acute Plan So1. Symptomatic bradycardia 2. Dizziness now resolved 3. Coronary artery disease * Prior stent to the RCA and diagonal 2014 4. 2-week Holter monitor 10/2020 average heart rate 60 bpm no pathological arrhythmias no atrial fibrillation ordered due to palpitations 5. Atypical chest pain 6. History of pancreatitis Plan Stay off metoprolol I think he was having indeed some symptomatic bradycardia. I do also wonder if the Flomax is causing some of his dizzy spells he is on a fairly high dose and was taking 0.8 mg in the morning time and like him to change that to 0.4 mg 1 tablet at bedtime If he has any trouble urinating down the road he can try taking 2 tablets at bedtime but if his dizziness recurs then we know that is part of the problem. We will obtain an echocardiogram and follow-up at to make sure her EF is normal due to his prior remote stent history. I want to make sure his ejection fraction is remained stable. Does have a loss of R wave in anterior leads suggestive of old anterior TX but obviously no acute ST changes or I think an echocardiogram at this point is reasonable. I did discuss with the and the patient he has any recurrent chest pain. We will consider stress test in the near future. He is to see me already in December and is scheduled for a visit then. I discussed with the patient and his that he has any recurrent dizzy spells we will place a 30-day monitor I also discussed with him he has some balance issues that I noted when he walks halls and appears to be somewhat new. Some of this may have been from also being in bed all day 2 but that is something we can reevaluate when I see him back if it worsens I want him to let me know. Narrative A/P Narrative: See above Plan of Treatment: Follow-up with Mallory Garg December/2021 Time Spent With Patient Time: Total time spent is greater than 50% in coordination of care (as documented) at patient's floor/unit and/or counseling patient: Total time spent with greater than 50% in coordination of care (as documented) at patient's floor/unit and/or counseling patient:: 25 - 35 minutes
[2021-10-23] MEDS ORDERED: DOXEPIN 25 MG CAPSULE PO SCH (21:00)
[2021-10-23] MEDS ORDERED: SENNOSIDES 1 TABLET PO SCH (21:00)
[2021-10-23] MEDS ORDERED: FINASTERIDE 5 MG TABLET PO SCH (21:00)
[2021-10-23] MEDS ORDERED: TAMSULOSIN 0.4 MG CAPSULE PO SCH (21:00)
== END 2021-10-23 18:57 | disposition home or self-care (01) ==
LOC: ED 16:42 → MEDSUR 16:42
PROVIDERS: ADMIT Internal Medicine; ATTEND Internal Medicine